=== PATIENT | female | born 1980 | race Hispanic/Latino ===

== ENCOUNTER 2017-02-07 00:48 | Emergency (ER) | payer MEDICAID ==
[2017-02-07] MEDS ORDERED: ASPIRIN 81MG TAB.CHEW ONE (01:23)
[2017-02-07] MEDS ORDERED: DEXAMETHASONE SOD PHOSPHATE 10MG/ML 1ML VIAL ONE (02:07)
[2017-02-07] MEDS ORDERED: METOPROLOL TARTRATE 25 MG TAB ONE (02:29)
== END 2017-02-07 04:01 | disposition home or self-care (01) ==
LOC: EDH 00:48
DX: M79.602 Pain in left arm (principal); M54.2 Cervicalgia; R07.9 Chest pain, unspecified; I10 Essential (primary) hypertension; Z90.49 Acquired absence of other specified parts of digestive tract
CPT/HCPCS: 71045; 93005; 96372; 99284; J1100

== ENCOUNTER 2017-07-02 19:59 | Emergency (ER) | payer MEDICAID ==
[2017-07-02] MEDS ORDERED: HYDROCHLOROTHIAZIDE 25 MG TABLET ONE (20:24)
[2017-07-02] MEDS ORDERED: ACETAMINOPHEN-CODEINE ELIXIR 5 ML UDCUP ONE (20:25)
[2017-07-02 20:37] LABS: BASOPHILS % (AUTO) 1.1 % (0.0-5.0); EOSINOPHILS % (AUTO) 0.7 % (0.0-8.0); HEMATOCRIT 30.7 % (36-48); LYMPHOCYTES % (AUTO) 33.1 % (21.0-51.0); MEAN CORPUSCULAR HGB CONC 32.8 g/dL (32.0-36.0); MONOCYTES % (AUTO) 7.2 % (3.0-13.0); NEUTROPHILS % (AUTO) 57.9 % (40.0-77.0); PLATELET COUNT (AUTO) 380 K/uL (130-400); RED BLOOD CELL COUNT(AUTO) 4.38 MIL/uL (4.00-5.50); RED CELL DISTRIBUTION WIDTH 18.7 % (11.0-15.5); WHITE BLOOD COUNT (AUTO) 9.7 K/uL (4.8-10.8)
[2017-07-02 20:52] LABS: CREATININE 0.8 mg/dL (0.5-1.5); POTASSIUM 3.4 mmol/L (3.5-5.1)
== END 2017-07-02 21:30 | disposition home or self-care (01) ==
LOC: EDH 19:59
DX: R51 Headache (principal); I10 Essential (primary) hypertension; Z98.51 Tubal ligation status; Z90.49 Acquired absence of other specified parts of digestive tract
CPT/HCPCS: 36415; 80048; 85025

== ENCOUNTER 2018-11-30 09:17 | Emergency (ER) | payer MEDICAID ==
[2018-11-30] MEDS ORDERED: KETOROLAC TROMETHAMINE 30MG/ML ONE (10:22)
[2018-11-30] MEDS ORDERED: PROCHLORPERAZINE EDISYLATE 10 MG/2 ML VIAL ONE (10:22)
[2018-11-30] MEDS ORDERED: ONDANSETRON HCL 4 MG/2 ML VIAL ONE (10:22)
[2018-11-30] MEDS ORDERED: SODIUM CHLORIDE 0.9% 1000ML 1,000 ML IV ONE (10:23)
[2018-11-30 10:42] LABS: BASOPHILS % (AUTO) 1.1 % (0.0-5.0); EOSINOPHILS % (AUTO) 1.6 % (0.0-8.0); HEMATOCRIT 34.7 % (36-48); LYMPHOCYTES % (AUTO) 27.5 % (21.0-51.0); MEAN CORPUSCULAR HGB CONC 32.1 g/dL (32.0-36.0); MONOCYTES % (AUTO) 6.7 % (3.0-13.0); NEUTROPHILS % (AUTO) 63.1 % (40.0-77.0); PLATELET COUNT (AUTO) 317 K/uL (130-400); RED BLOOD CELL COUNT(AUTO) 4.45 MIL/uL (4.00-5.50); RED CELL DISTRIBUTION WIDTH 16.5 % (11.0-15.5); WHITE BLOOD COUNT (AUTO) 7.9 K/uL (4.8-10.8)
[2018-11-30 10:46] LABS: CREATININE 0.8 mg/dL (0.5-1.5); POTASSIUM 3.8 mmol/L (3.5-5.1)
[2018-11-30 11:29] LABS: APPEARANCE,URINE Cloudy (CLEAR); BILIRUBIN,URINE Negative (NEGATIVE); COLOR,URINE Yellow (YELLOW); GLUCOSE, URINE (UA) Negative (NEGATIVE); KETONES,URINE Negative (NEGATIVE); LEUKOCYTE ESTERASE ,URINE Small (NEGATIVE); NITRATE,URINE Negative (NEGATIVE); OCCULT BLOOD,URINE Moderate (NEGATIVE); PROTEIN,URINE Negative (NEGATIVE)
[2018-11-30 11:30] LABS: HCG,QUAL RESULT NEGATIVE (NEGATIVE)
[2018-11-30 11:42] LABS: BACTERIA,URINE Few /HPF (None Seen)
== END 2018-11-30 12:35 | disposition home or self-care (01) ==
LOC: EDH 09:17
DX: G44.209 Tension-type headache, unspecified, not intractable (principal); I10 Essential (primary) hypertension; Z90.49 Acquired absence of other specified parts of digestive tract
CPT/HCPCS: 36415; 70450; 80048; 81001; 81025; 84484; 85025; 93005; 96374; 96375; 99285; J0780; J1885; J2405; J7030

== ENCOUNTER 2019-11-29 08:05 | Emergency (ER) | payer MEDICAID ==
[2019-11-29] MEDS ORDERED: ONDANSETRON HCL 4 MG/2 ML VIAL ONE (08:47)
[2019-11-29] MEDS ORDERED: SODIUM CHLORIDE 0.9% 1000ML 1,000 ML IV ONE (08:48)
[2019-11-29 09:07] LABS: BASOPHILS % (AUTO) 0.7 % (0.0-5.0); EOSINOPHILS % (AUTO) 1.4 % (0.0-8.0); HEMATOCRIT 38.8 % (36-48); LYMPHOCYTES % (AUTO) 56.8 % (21.0-51.0); MEAN CORPUSCULAR HEMOGLOBIN 23.2 pg (27.0-33.0); MEAN CORPUSCULAR HGB CONC 30.9 g/dL (32.0-36.0); MONOCYTES % (AUTO) 12.5 % (3.0-13.0); NEUTROPHILS % (AUTO) 28.1 % (40.0-77.0); PLATELET COUNT (AUTO) 123 K/uL (130-400); RED BLOOD CELL COUNT(AUTO) 5.17 MIL/uL (4.00-5.50); RED CELL DISTRIBUTION WIDTH 15.7 % (11.0-15.5); WHITE BLOOD COUNT (AUTO) 4.3 K/uL (4.8-10.8)
[2019-11-29 09:22] LABS: APPEARANCE,URINE SL CLOUDY (CLEAR); BILIRUBIN,URINE MODERATE (NEGATIVE); COLOR,URINE YELLOW (YELLOW); GLUCOSE, URINE (UA) NEGATIVE (NEGATIVE); KETONES,URINE 40 mg/dL (NEGATIVE); LEUKOCYTE ESTERASE ,URINE MODERATE (NEGATIVE); NITRATE,URINE POSITIVE (NEGATIVE); OCCULT BLOOD,URINE NEGATIVE (NEGATIVE); PH,URINE 6.5 (5.0-8.0); PROTEIN,URINE 30 mg/dL (NEGATIVE)
[2019-11-29 09:29] LABS: AMPHET/METH SCREEN,URINE NEGATIVE (NEGATIVE); BARBITURATE SCREEN, URINE NEGATIVE (NEGATIVE); BENZODIAZEPINES SCREEN,URINE NEGATIVE (NEGATIVE); CANNABINOID SCREEN,URINE NEGATIVE (NEGATIVE); COCAINE SCREEN,URINE NEGATIVE (NEGATIVE); OPIATE SCREEN,URINE NEGATIVE (NEGATIVE); PHENCYCLIDINE SCREEN,URINE NEGATIVE (NEGATIVE)
[2019-11-29 09:31] LABS: BACTERIA,URINE Moderate /HPF (None Seen); MUCUS,URINE Moderate LPF (None Seen); SQUAMOUS EPITHELIAL CELL,UR Moderate /HPF (0-2)
[2019-11-29 09:35] LABS: YEAST,URINE BUDDING Few /HPF (None Seen)
[2019-11-29 09:38] LABS: ALBUMIN 3.1 g/dL (3.5-5.0); BILIRUBIN,DIRECT 0.3 mg/dL (0.0-0.3); BILIRUBIN,TOTAL 0.7 mg/dL (0.2-1.0); CREATININE 0.9 mg/dL (0.5-1.5); POTASSIUM 3.6 mmol/L (3.5-5.1); TOTAL PROTEIN, SERUM 8.6 g/dL (6.0-8.3)
== END 2019-11-29 11:08 | disposition home or self-care (01) ==
LOC: EDH 08:05
DX: A75.9 Typhus fever, unspecified (principal); E86.0 Dehydration; I10 Essential (primary) hypertension; Z90.49 Acquired absence of other specified parts of digestive tract; Z87.891 Personal history of nicotine dependence
CPT/HCPCS: 36415; 71045; 80048; 80076; 80305; 81001; 81025; 82550; 83690; 85025; 87077; 87088; 87186; 87426; 87804 ×2; 96361; 96374; 99284; J2405; J7030

== ENCOUNTER 2021-03-31 21:34 | Emergency (ER) | payer MEDICAID ==
[~2021-03-31] VITALS: Ht 160 cm; Wt 102.1 kg
[2021-03-31 22:13] LABS: APPEARANCE,URINE CLEAR (CLEAR); BILIRUBIN,URINE NEGATIVE (NEGATIVE); COLOR,URINE YELLOW (YELLOW); GLUCOSE, URINE (UA) NEGATIVE (NEGATIVE); KETONES,URINE 5 mg/dL (NEGATIVE); LEUKOCYTE ESTERASE ,URINE SMALL (NEGATIVE); NITRATE,URINE NEGATIVE (NEGATIVE); OCCULT BLOOD,URINE NEGATIVE (NEGATIVE); PROTEIN,URINE NEGATIVE (NEGATIVE)
[2021-03-31 22:15] LABS: BASOPHILS % (AUTO) 0.9 % (0.0-5.0); HEMATOCRIT 37.5 % (36-48); LYMPHOCYTES % (AUTO) 28.5 % (21.0-51.0); MEAN CORPUSCULAR HEMOGLOBIN 21.7 pg (27.0-33.0); MEAN CORPUSCULAR HGB CONC 29.1 g/dL (32.0-36.0); MEAN CORPUSCULAR VOLUME 74.6 fL (79-99); MONOCYTES % (AUTO) 7.2 % (3.0-13.0); NEUTROPHILS % (AUTO) 62.1 % (40.0-77.0); PLATELET COUNT (AUTO) 441 K/uL (130-400); RED BLOOD CELL COUNT(AUTO) 5.03 MIL/uL (4.00-5.50); WHITE BLOOD COUNT (AUTO) 12.4 K/uL (4.8-10.8)
[2021-03-31 22:20] LABS: RBC,URINE 0-1 /HPF (0-1)
[2021-03-31 22:21] LABS: BACTERIA,URINE Few /HPF (None Seen); MUCUS,URINE Few LPF (None Seen); SQUAMOUS EPITHELIAL CELL,UR Moderate /HPF (0-2)
[2021-03-31 22:41] LABS: PLATELET MORPHOLOGY LARGE PLTS PRESENT
[2021-03-31 22:42] LABS: CREATININE 0.8 mg/dL (0.5-1.5); POTASSIUM 3.4 mmol/L (3.5-5.1)
[2021-03-31 22:51] LABS: ALBUMIN 3.9 g/dL (3.5-5.0); BILIRUBIN,TOTAL 0.5 mg/dL (0.2-1.0); TOTAL PROTEIN, SERUM 9.5 g/dL (6.0-8.3)
[2021-03-31 22:57] VITALS: BP 147/83
[2021-03-31] MEDS ORDERED: KETOROLAC 30MG VIAL (30MG/ML) IV ONE (23:30)
[2021-03-31] MEDS ORDERED: CYCLOBENZAPRINE HCL 10 MG TABLET PO ONE (23:30)
[2021-03-31] MEDS ORDERED: CYCL-309 PO (23:52)
[2021-03-31] MEDS ORDERED: MELO7.5T12 PO (23:52)
== END 2021-04-01 00:02 | disposition home or self-care (01) ==
LOC: EDH 21:34
DX: R07.89 Other chest pain (principal); I10 Essential (primary) hypertension; Z79.1 Long term (current) use of non-steroidal anti-inflammatories (NSAID); Z90.49 Acquired absence of other specified parts of digestive tract
CPT/HCPCS: 36415; 71045; 80053; 81001; 84484; 85025; 87088; 93005; 96374; 99285; J1885

== ENCOUNTER 2021-06-24 07:59 | Emergency (ER) | payer MEDICAID ==
[~2021-06-24] VITALS: Ht 160 cm; Wt 104.3 kg
[~2021-06-24 07:59] MED LIST: CYCL-309 PO; MELO7.5T12 PO
[2021-06-24] MEDS ORDERED: PHENAZOPYRIDINE HCL 200 MG TABLET PO ONE (08:30)
[2021-06-24] MEDS ORDERED: IBUPROFEN 600 MG TABLET PO ONE (08:30)
[2021-06-24] MEDS ORDERED: CEFTRIAXONE 1G VIAL IM ONE (08:30)
[2021-06-24] MEDS ORDERED: IBUP-2070 PO (08:39)
[2021-06-24] MEDS ORDERED: PHEN-847 PO (08:39)
[2021-06-24] MEDS ORDERED: CEPH500B PO (08:39)
[2021-06-24 08:40] LABS: BILIRUBIN,URINE Negative (NEGATIVE); COLOR,URINE Yellow (YELLOW); GLUCOSE, URINE (UA) Negative (NEGATIVE); KETONES,URINE Negative (NEGATIVE); LEUKOCYTE ESTERASE ,URINE Small (NEGATIVE); NITRATE,URINE Negative (NEGATIVE); OCCULT BLOOD,URINE Negative (NEGATIVE); PH,URINE 5.5 (5.0-8.0); PROTEIN,URINE Negative (NEGATIVE)
[2021-06-24 08:41] LABS: APPEARANCE,URINE CLEAR (CLEAR)
[2021-06-24 08:50] LABS: BACTERIA,URINE Moderate /HPF (None Seen); RBC,URINE None Seen /HPF (0-1)
[2021-06-24 08:51] LABS: MUCUS,URINE Moderate LPF (None Seen)
[2021-06-24 09:01] VITALS: BP 149/91
== END 2021-06-24 08:58 | disposition home or self-care (01) ==
LOC: EDH 07:59
DX: N39.0 Urinary tract infection, site not specified (principal); I10 Essential (primary) hypertension; Z90.89 Acquired absence of other organs; Z98.890 Other specified postprocedural states; Z79.899 Other long term (current) drug therapy
CPT/HCPCS: 81001; 87088; 96372; 99283; J0696

== ENCOUNTER 2023-04-28 01:29 | Emergency (ER) | payer MEDICAID, OTHER ==
[~2023-04-28] VITALS: Ht 160 cm; Wt 90.7 kg
[~2023-04-28 01:29] MED LIST changes: +CEPH500B PO; +IBUP-2070 PO; +PHEN-847 PO
[2023-04-28] MEDS: ONDANSETRON ODT 4MG TAB SL ONE (01:48)
[2023-04-28 01:55] LABS: APPEARANCE,URINE CLEAR (CLEAR); BILIRUBIN,URINE NEGATIVE (NEGATIVE); COLOR,URINE COLORLESS (YELLOW); GLUCOSE, URINE (UA) NEGATIVE (NEGATIVE); KETONES,URINE NEGATIVE (NEGATIVE); LEUKOCYTE ESTERASE ,URINE NEGATIVE Leu/uL (NEGATIVE); NITRATE,URINE NEGATIVE (NEGATIVE); OCCULT BLOOD,URINE LARGE (NEGATIVE); PROTEIN,URINE 10 mg/dL (NEGATIVE); UROBILINOGEN,URINE 0.2 mg/dL (0.2-1.0)
[2023-04-28 01:57] LABS: ADD UA MICROSCOPIC YES; HCG,QUALITATIVE URINE NEGATIVE (NEGATIVE); RAPID GROUP A STREP negative (NEGATIVE)
[2023-04-28 01:58] LABS: MUCUS,URINE RARE LPF (None Seen); RBC,URINE >100 /HPF (0-1); SQUAMOUS EPITHELIAL CELL,UR RARE /HPF (0-2)
[2023-04-28 02:03] LABS: SARS-CoV-2, RNA, NAAT NEGATIVE SARS CoV-2 (NEGATIVE)
[2023-04-28 02:07] LABS: INFLUENZA TYPE A Negative For Type A (NEGATIVE); INFLUENZA TYPE B Negative For Type B (NEGATIVE)
[2023-04-28] MEDS ORDERED: KETO10 PO (04:16)
[2023-04-28] MEDS ORDERED: TAMS-1 PO (04:16)
[2023-04-28] MEDS ORDERED: FAMO-136 PO (04:16)
[2023-04-28] MEDS ORDERED: METO-296 PO (04:16)
[2023-04-28 04:20] VITALS: BP 148/75; PULSE 75; RESP 18; O2SAT 100
== END 2023-04-28 04:24 | disposition home or self-care (01) ==
LOC: EDH 01:29
DX: N20.0 Calculus of kidney (principal); I10 Essential (primary) hypertension; E11.9 Type 2 diabetes mellitus without complications; D64.9 Anemia, unspecified; Z20.822 Contact with and (suspected) exposure to COVID-19; Z79.899 Other long term (current) drug therapy; Z98.890 Other specified postprocedural states; Z90.49 Acquired absence of other specified parts of digestive tract
CPT/HCPCS: 74176; 81001; 81025; 87635; 87804; 87880